=== PATIENT | female | born 1965 | race Caucasian/White ===

== ENCOUNTER 2018-07-16 13:23 | Emergency (ER) | payer MEDICAID ==
[~2018-07-16] VITALS: Ht 149.9 cm; Wt 69.4 kg
[2018-07-16 13:43] VITALS: Ht 149.9 cm; Wt 69.4 kg
[2018-07-16 15:04] VITALS: BP 129/91
== END 2018-07-16 15:04 | disposition home or self-care (01) ==
LOC: ED 13:23
DX: M65.841 Other synovitis and tenosynovitis, right hand (principal); E11.9 Type 2 diabetes mellitus without complications

== ENCOUNTER 2018-11-26 08:14 | Emergency (ER) | payer MEDICAID ==
[~2018-11-26] VITALS: Ht 154.9 cm; Wt 69.4 kg
[2018-11-26 08:24] VITALS: Ht 154.9 cm; Wt 69.4 kg
[2018-11-26 08:56] LABS: BASOPHIL % 0.4 % (0-2); PLATELET COUNT 280 x10^3mcL (130-400)
[2018-11-26 09:43] LABS: CALCIUM 9.9 mg/dL (8.5-10.1); CARBON DIOXIDE 25.9 mmol/L (21-32); CHLORIDE SERUM 102 mmol/L (98-107); CREATININE SERUM 0.8 mg/dL (0.6-1.0); GFR1 > 60 mL/min; GLUCOSE SERUM 206 mg/dL (74-106); POTASSIUM SERUM 4.4 mmol/L (3.5-5.1); SODIUM SERUM 138 mmol/L (136-145)
[2018-11-26 10:11] VITALS: BP 137/84
== END 2018-11-26 10:26 | disposition home or self-care (01) ==
LOC: ED 08:14
PROVIDERS: Emergency Medicine
DX: K64.4 Residual hemorrhoidal skin tags (principal); E11.9 Type 2 diabetes mellitus without complications; Z88.0 Allergy status to penicillin; Z88.2 Allergy status to sulfonamides
CPT/HCPCS: 82962; J3010; J3490; J7030